=== PATIENT | female | born 1975 | race Hispanic/Latino ===

== ENCOUNTER 2022-04-26 13:02 | Outpatient (CLI) | payer BC | END 2022-04-26 13:03 | disposition home or self-care (01) | LOC: CSHULT 13:02 | PROVIDERS: ATTEND Obstetrics & Gynecology | DX: R92.8 Other abnormal and inconclusive findings on diagnostic imaging of breast (principal) ==

== ENCOUNTER 2025-09-11 15:40 | Outpatient (CLI) | payer BC | END 2025-09-11 15:41 | disposition home or self-care (01) | LOC: CSHRAD 15:40 | PROVIDERS: ATTEND Internal Medicine Rheumatology | DX: M65.98 Unspecified synovitis and tenosynovitis, other site (principal) ==